=== PATIENT | female | born 1995 | race Two or more races ===

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

== ENCOUNTER 2017-11-19 02:06 | Emergency (ER) | payer MEDICAID ==
[2017-11-19] MEDS ORDERED: ONDANSETRON 4 MG TAB.RAPDIS PO ONE (02:13)
[2017-11-19] MEDS ORDERED: LORAZEPAM 1 MG TABLET PO ONE (02:13)
--- NOTE | 2017-11-19 03:02 | ER Document Report ---
ED General - General Stated Complaint: PSYCH PROBLEM Time Seen by Provider: 11/19/17 02:12 Cannot obtain history due to: Intoxicated Notes: Patient is a 22-year-old female without past medical history who presents with paranoia and anxiety. The patient states that she feels that she "ate something bad". However, EMS reports that the house smelled very strongly of marijuana and both the patient as well as her significant other appeared to be intoxicated on marijuana or hallucinogenic. The patient herself denies any specific complaints other than feeling quite anxious. Nothing seems to improve or worsen her symptoms. When I asked if she is used any drugs or alcohol tonight she states "I do not think so". She denies any pain, nausea, vomiting, headache, neck pain or fever. She is here with her significant other who also appears to be intoxicated on marijuana or an alternative hallucinogenic. TRAVEL OUTSIDE OF THE [place] IN LAST 30 DAYS: No - Related Data Allergies/Adverse Reactions: adhesive Allergy (Verified 07/28/16 17:33) oranges Allergy (Uncoded 07/28/16 17:43) peppers Allergy (Uncoded 07/28/16 17:43) Past Medical History - General Information source: Patient, Emergency Med Personnel - Social History Smoking Status: Never Smoker Frequency of alcohol use: None Drug Abuse: None Lives with: Spouse/Significant other Family History: Reviewed & Not Pertinent Review of Systems - Review of Systems Notes: Constitutional: Negative for fever. HENT: Negative for sore throat. Eyes: Negative for visual changes. Cardiovascular: Negative for chest pain. Respiratory: Negative for shortness of breath. Gastrointestinal: Negative for abdominal pain, vomiting or diarrhea. Genitourinary: Negative for dysuria. Musculoskeletal: Negative for back pain. Skin: Negative for rash. Neurological: Negative for headaches, weakness or numbness. 10 point ROS negative except as marked above and in HPI. Physical Exam - Vital signs Interpretation: Normal Notes: PHYSICAL EXAMINATION: GENERAL: Appears somewhat anxious but in no acute distress HEAD: Atraumatic, normocephalic. EYES: Pupils dilated to 5 mm bilaterally, equal round and reactive to light, extraocular movements intact, sclera anicteric, conjunctiva are normal. ENT: nares patent, oropharynx clear without exudates. Moist mucous membranes. NECK: Normal range of motion, supple without lymphadenopathy LUNGS: Breath sounds clear to auscultation bilaterally and equal. No wheezes rales or rhonchi. HEART: Regular rate and rhythm without murmurs ABDOMEN: Soft, nontender, normoactive bowel sounds. No guarding, no rebound. No masses appreciated. EXTREMITIES: Normal range of motion, no pitting or edema. No cyanosis. NEUROLOGICAL: No focal neurological deficits. Moves all extremities spontaneously and on command. PSYCH: Moderately anxious SKIN: Warm, Dry, normal turgor, no rashes or lesions noted. Course - Re-evaluation Re-evalutation: 11/19/17 03:03 Patient presents with anxiety, paranoia and possible hallucinations likely after ingesting either marijuana or a hallucinogenic. Physical examination is unremarkable. Vital signs unremarkable. No indication for labs or imaging. Patient had improvement of her symptoms after receiving oral Lorazepam. She was able to tolerate oral intake without difficulty. No suicidal or homicidal ideation. At this time will discharge with return precautions and follow-up recommendations. Verbal discharge instructions given a the bedside and opportunity for questions given. Medication warnings reviewed. Patient is in agreement with this plan and has verbalized understanding of return precautions and the need for primary care follow-up in the next 24-72 hours. Discharge - Discharge Clinical Impression: Paranoia, Anxiety Condition: Good Disposition: HOME, SELF-CARE Additional Instructions: Return if you develop recurrence of your symptoms, headache, fever, confusion, or any other symptoms that are worrisome to you.
[2017-11-19 03:12] VITALS: BP 116/70
== END 2017-11-19 03:12 | disposition home or self-care (01) ==
LOC: ER 02:06
DX: F22 Delusional disorders (principal); F41.9 Anxiety disorder, unspecified
CPT/HCPCS: 99285; S0119